=== PATIENT | female | born 1935 | race Caucasian/White ===

== ENCOUNTER 2017-08-13 08:15 | Inpatient (IN) | payer OTHER ==
[~2017-08-13] VITALS: Ht 162.6 cm; Wt 82.6 kg
--- NOTE | ~2017-08-13 | EKG ---
[address] [address] ELECTROCARDIOGRAM REPORT Name: DARCY GALEAS Room #: 420-P ADM IN M.R.#: [id number] Admission: 08/13/17 Attend Phys: Tyron Dunbar MD Discharge: Date of : 35 Report #: [id number] THIS REPORT FOR: //name// [facility] ED Test Date: 2017-08-13 Test Time: 08:39:06 Pat Name: DARCY GALEAS Department: Room: [facility] Gender: F [employer] Machine Operator: Gregory FANG : 1935 Requested By: Josh Montelongo Order Number: [id number] MD: Otilio Oliveira Measurements Intervals [place] Rate: 54 P: MA: QRS: -27 QRSD: 129 T: 21 QT: 548 QTc: 520 Interpretive Statements Junctional rhythm vs atrial fibrillation. Myocardial infarct finding no longer present Electronically Signed On 08-13-2017 13:00:44 CDT by Otilio Oliveira [email or web address] <ELECTRONICALLY SIGNED> By: Otilio Oliveira MD 08/13/17 1300 0839 8 Otilio Oliveira MD /JAME
--- NOTE | ~2017-08-13 | EKG ---
[address] [address] ELECTROCARDIOGRAM REPORT Name: DARCY GALEAS Room #: 420-P ADM IN M.R.#: [id number] Admission: 08/13/17 Attend Phys: Tyron Dunbar MD Discharge: Date of : 35 Report #: [id number] THIS REPORT FOR: //name// [facility] ED Test Date: 2017-08-13 Test Time: 08:33:00 Pat Name: DARCY GALEAS Department: Room: [facility] Gender: F Therapist Phys: Gregory FANG : 1935 Requested By: Josh Montelongo Order Number: [id number] MD: Otilio Oliveira Measurements Intervals [place] Rate: 55 P: [place]: QRS: -23 QRSD: 142 T: 26 QT: 547 QTc: 524 Interpretive Statements Junctional rhythm IVCD, consider atypical LBBB Compared to ECG 08/21/2016 07:19:09 Junctional rhythm now present Atrial fibrillation no longer present Myocardial infarct finding no longer present Electronically Signed On 08-13-2017 15:44:40 CDT by Otilio Oliveira [email or web address] <ELECTRONICALLY SIGNED> By: Otilio Oliveira MD 08/13/17 1544 0833 Otilio Oliveira MD /EPI
--- NOTE | ~2017-08-13 | 2DMMODE ---
[facility] [address] [place] [address] 2 D/M-MODE ECHOCARDIOGRAM Name: DARCY GALEAS Room #: 420-P ADM IN M.R.#: [id number] Admission: 08/13/17 Attend Phys: Tyron Dunbar, Discharge: Date of : 35 Date of Service: 08/13/17 1306 Report #: [id number] THIS REPORT FOR: //name// APPROVED REPORT Study performed: 08/13/2017 11:32:49 EXAM: Comprehensive 2D, Doppler, and color-flow Echocardiogram Patient Location: Echo lab Room #: 420 Status: routine BSA: 1.91 HR: 62 bpm BP: 112/51 mmHg Rhythm: NSR Other Information Study Quality: Good Indications Aortic stenosis. 2D Dimensions RVDd: 40.14 mm LVEF(%): 63.67 (>50%) IVSd: 13.12 (7-11mm) LVOT Diam: 20.36 (18-24mm) LVDd: 51.13 mm PWd: 12.87 (7-11mm) Ascending Ao: 28.98 (22-36mm) LVDs: 33.34 (25-40mm) Aortic Root: 29.46 mm Groves's LVEF: 63.67 % Volumes Left Atrial Volume (Systole) Single Plane 4CH: 98.34 mL Single Plane 2CH: 113.23 mL LA ESV Index: 64.00 mL/m2 Aortic Valve AoV Peak Carter.: 5.13 m/s AO Peak Gr.: 105.19 mmHg LVOT Max P.39 mmHg AO Mean Gr.: 64.90 mmHg AO V2 Mean: 3.85 m/s LVOT Max V: 0.77 m/s AO V2 VTI: 152.73 cm ZANA Vmax: 0.49 cm2 AI Vmax: 3.48 m/s AI [place]: 2.75 m/s2 [facility] [place] [address] 2 D/M-MODE ECHOCARDIOGRAM Name: DARCY GALEAS Room #: 420-P [facility] IN M.R.#: [id number] Admission: 08/13/17 Attend Phys: Tyron Dunbar, Discharge: Date of : 35 Date of Service: 08/13/17 1306 Report #: [id number] AI PHT: 367.89 ms Mitral Valve E/A Ratio: 2.3 MV Decel. Time: 128.78 ms MV E Max Carter.: 1.76 m/s MV A Carter.: 0.75 m/s MV PHT: 37.35 ms IVRT: 50.75 ms Pulmonary Valve PV Peak Carter.: 1.23 m/s PV Peak Gr.: 6.04 mmHg Tricuspid Valve TR Peak Carter.: 4.13 m/s RAP Estimate: 15.00 mmHg TR Peak Gr.: 68.36 mmHg PA Pressure: 73.00 mmHg Left Ventricle The left ventricle is normal size. There is normal LV segmental wall motion. Mild concentric left ventricular hypertrophy. Left ventricular systolic function is normal. LVEF is 55-60%. Severe diastolic dysfunction is present (restrictive filling). Right Ventricle The right ventricle is normal size. The right ventricular systolic function is low normal. Atria Left atrium is severely dilated. Right atrium is mildly dilated. Aortic Valve Aortic valve is severely calcified. Moderate aortic regurgitation. There is severe valvular aortic stenosis. Calculated aortic valve area is 0.5 cm2 with maximum pressure gradient of 105 mmHg and mean pressure gradient of 65 mmHg. Mitral Valve Moderate mitral annular calcification. Severe mitral regurgitation Tricuspid Valve The tricuspid valve is normal in structure. Moderate tricuspid regurgitation. Estimated PAP is 73mmHg. [facility] [address] [place] [address] 2 D/M-MODE ECHOCARDIOGRAM Name: DARCY GALEAS Room #: 420-P [facility] IN [facility]#: [id number] Admission: 08/13/17 Attend Phys: Tyron Dunbar, Discharge: Date of : 35 Date of Service: 08/13/17 1306 Report #: [id number] Pulmonic Valve The pulmonary valve is normal in structure. Mild pulmonic regurgitation. Great Vessels The aortic root is normal in size. The ascending aorta is normal in size. IVC is dilated and collapses <50% with inspiration. Pericardium There is no pericardial effusion. There is no pericardial effusion. Left and right pleural effusions noted. <Conclusion> Global LV function at the lower limits of normal LVEF is 55-60%. Mild concentric left ventricular hypertrophy. Both atria are dilated. Grade III diastolic dysfunction There is normal LV segmental wall motion. There is severe valvular aortic stenosis. Moderate insufficiency Calculated aortic valve area is 0.5 cm2 with maximum pressure gradient of 105 mmHg and mean pressure gradient of 65 mmHg. Moderate mitral annular calcification. Severe mitral regurgitation Pulmonary artery pressure of 73mmHg No pericardial effusion <ELECTRONICALLY SIGNED> By: Onofre Beverly MD, FACC 08/13/17 1306 05 130 Onofre Beverly MD, FACC /INF
[~2017-08-13 08:15] MED LIST: ASPIR 8181 MG PO; C-500500 MG; CENTRUM SILVER1 EAC4 PO; CIPRO250 M1 PO; CRESTOR10 MG; ELIQUIS5 MG PO; HUMALOG MI100 UNIT/6 SUBQ; IRON325 PO; K-DUR 20 MEQ T20 MEQ PO; LASIX 40 MG TAB40 M1 PO; LOPRESSOR50; LOSARTAN-HCTZ1 EAC3; METFORMIN HCL500 MG PO; NORVASC5 MG PO; PACERONE 200 M200 M1 PO; TOPROL XL100 MG PO; UNICOMPLEX M TA1 TA1 PO; VITAMINC500 PO
[2017-08-13 08:58] LABS: HEMATOCRIT 30.1 % (37.0-47.0); HEMOGLOBIN 9.8 gm/dL (12.0-15.0); MCH 30.6 pg (26.0-34.0); MCHC 32.7 g/dL (28.0-37.0); MCV 93.5 fL (80.0-100.0); RBC 3.22 mil/uL (4.20-5.00); RDW 15.8 % (10.5-14.5); WBC 7.8 thou/uL (4.0-11.0)
[2017-08-13 09:04] VITALS: BP 109/31
[2017-08-13 09:09] LABS: CALCIUM 9.1 mg/dL (8.5-10.1); CREATININE 2.6 mg/dL (0.6-1.0); POTASSIUM 3.9 mmol/L (3.5-5.1)
[2017-08-13 09:18] LABS: MAGNESIUM 2.2 mg/dL (1.8-2.4); TROPONIN-I 0.05 ng/mL (<0.04-0.07)
[2017-08-13] MEDS ORDERED: METOPROLOL SUCC50 MG PO (10:20)
[2017-08-13] MEDS ORDERED: HUMALOG MI100 UNIT/1 SUBQ (10:22)
[2017-08-13] MEDS ORDERED: PACERONE 200 M200 M1 PO (10:25)
[2017-08-13 10:45] VITALS: BP 112/51
[2017-08-13 11:47] VITALS: BP 144/84
[2017-08-13 16:19] VITALS: BP 108/51
[2017-08-13 20:00] VITALS: BP 110/47
[2017-08-14 04:00] VITALS: BP 116/41
[2017-08-14] MEDS ORDERED: ELIQUIS2.5 MG PO (07:55)
[2017-08-14 07:56] VITALS: BP 115/37
[2017-08-14 09:36] VITALS: BP 115/37
[2017-08-14] MEDS ORDERED: K-DUR 20 MEQ T20 MEQ PO (11:03)
[2017-08-14] MEDS ORDERED: LASIX 40 MG TAB40 M2 PO (11:04)
== END 2017-08-14 12:46 | disposition home or self-care (01) | DRG 291 ==
LOC: ER 08:15 → EROBS 10:24 → 4E 10:24
PROVIDERS: Emergency Medicine
DX: I13.0 Hypertensive heart and chronic kidney disease with heart failure and stage 1 through stage 4 chronic kidney disease, or unspecified chronic kidney disease (principal); I50.33 Acute on chronic diastolic (congestive) heart failure; N17.9 Acute kidney failure, unspecified; Z80.9 Family history of malignant neoplasm, unspecified; N18.9 Chronic kidney disease, unspecified; E11.22 Type 2 diabetes mellitus with diabetic chronic kidney disease; I35.0 Nonrheumatic aortic (valve) stenosis; I25.10 Atherosclerotic heart disease of native coronary artery without angina pectoris; E78.5 Hyperlipidemia, unspecified; I48.0 Paroxysmal atrial fibrillation; I27.20 Pulmonary hypertension, unspecified; Z79.01 Long term (current) use of anticoagulants; Z87.891 Personal history of nicotine dependence; Z82.49 Family history of ischemic heart disease and other diseases of the circulatory system; Z79.899 Other long term (current) drug therapy; Z88.6 Allergy status to analgesic agent; Z88.0 Allergy status to penicillin; Z88.8 Allergy status to other drugs, medicaments and biological substances; Z90.49 Acquired absence of other specified parts of digestive tract
CPT/HCPCS: 10183

== ENCOUNTER 2017-09-25 16:51 | Inpatient (IN) | payer OTHER ==
[~2017-09-25] VITALS: Ht 162.6 cm; Wt 79.7 kg
--- NOTE | ~2017-09-25 | HC ---
[facility] [place] [address] CONSULTATION Name: DARCY GALEAS Room #: 211-P ADM IN M.R.#: [id number] Admission: 09/25/17 Attend Phys: Cedric Mac MD, Discharge: Date of : 35 Report #: [id number] THIS REPORT FOR: //name// CC: Cedric Dunbar DATE OF SERVICE: 09/25/2017 REASON FOR CONSULTATION: Worsening renal function. HISTORY OF PRESENT ILLNESS: This is an 81-year-old female who has severe/critical aortic stenosis. She has had multiple hospitalizations over the past several years related to this. Her most recent one was about 5 or 6 weeks ago in early August. At that time, she collapsed when trying to help her who had had a TIA. She ended up in the hospital and underwent some diuresis. She has previously been known to have critical aortic stenosis. Her last echocardiogram from August showed an aortic valve area of only 0.5 cm and a gradient across that valve over 100 mmHg. She also has some diabetes mellitus. She has not previously shown proteinuria. Her creatinine at that time was in the 2 range. She has undergone additional diuresis and then was discharged to home, originally without diuretics. Then, she has been back on them and even on a double dose of 80 mg daily last weekend because of worsening dyspnea. Also, during the last hospitalization, she had been on metformin, but that was stopped. She was also seen in consultation during that hospitalization by one of my associates, Shelly Dyson. He reviewed the fact that she had an ultrasound of her kidneys, which was normal anatomically. Her changes were all consistent with cardiorenal syndrome. The patient saw Dr. Mac in the office today and with her worsening symptoms, she was admitted to the hospital. She has been borderline hypotensive with blood pressure of 100/45. She has been started on Lasix drip at 5 mg per hour. She denies any exposure to nonsteroidals. No nephrotoxic exposures. PAST MEDICAL HISTORY: Critical aortic stenosis as noted above, also has a history of atrial fibrillation, some coronary artery disease, diabetes for a number of years, hypertension more on the hypotensive side now, hyperlipidemia. She has had a previous hernia repair and a cholecystectomy. MEDICATIONS ON ADMISSION: Include amiodarone 200 mg daily, furosemide 40 mg daily, aspirin 81 mg daily, Eliquis, Crestor 10 mg daily, metoprolol 50 mg daily and some insulin. ALLERGIES: CEPHALOSPORINS, CODEINE, PENICILLIN, and SULFA. FAMILY HISTORY: Noncontributory. SOCIAL HISTORY: The patient is , had a recent TIA accompanied at [address] [address] CONSULTATION Name: DARCY GALEAS Room #: 211-P ADM IN M.R.#: [id number] Admission: 09/25/17 Attend Phys: Cedric Mac MD, Discharge: Date of : 35 Report #: [id number] this time by 8 or 10 family members multiple which are her adult children and their spouses. REVIEW OF SYSTEMS: Appetite is poor. She says she has lost 30 pounds in the past year, still has lower extremity edema, legs feel heavy. Denies chest pain. Does have dyspnea with any exertion, orthopnea. She has been sleeping more upright. Denies fevers, chills or sweats. Has had some sinus fullness and drainage and cough associated with that. Denies palpitations. Appetite has been now down. No dysuria. PHYSICAL EXAMINATION: GENERAL: Very pleasant 81-year-old female, awake, alert and responsive. VITAL SIGNS: Blood pressure 100/45, heart rate 58, temperature 97.9, oxygen saturation 94%. HEENT: Shows pupils are equal and reactive. Sclerae nonicteric. Oral mucosa is moist. NECK: Veins are not distended. Neck is supple, no adenopathy. CHEST: Shows mild decrease in the bases, but overall fairly clear lung redman. BACK: Shows no CVA tenderness. HEART: Shows a grade 3 very high pitched systolic murmur throughout the epicardium with radiation to the carotids. ABDOMEN: Has active bowel sounds, is soft, nontender at this time. Nondistended. No organomegaly or masses are palpable. EXTREMITIES: She has 2+ bilateral lower extremity edema of the legs, 1+ of the thighs. She has diminished pedal pulses. ASSESSMENT: 1. Critical aortic stenosis. Since I started this dictation, I have had a chance to discuss with Dr. Mac. He reviewed her echocardiogram from the office today. Everyone was aware that she needs some sort of valve manipulation either a TAVR or an open valve replacement. 2. Worsening heart failure symptoms. Well described previously. She is on Lasix drip and will see if we can get her symptomatically better. 3. Worsening renal failure. She has cardiorenal syndrome. Worsening renal failure related cardiorenal syndrome. Previous renal workup has been negative. We will repeat her urinalysis just to make sure that she has not developed nephrotic proteinuria. We will also check a fractional excretion of sodium as if this is all due to her critical aortic stenosis, it will probably be low even in spite of the Lasix. 4. Longstanding diabetes. PLAN: 1. Okay to continue her Lasix drip tonight. 2. Check urinalysis and fractional excretion of sodium. 3. Repeat labs in the morning. 4. I have discussed with Dr. Mac and our based on under the understanding [facility] [address] [place] [address] CONSULTATION Name: DARCY GALEAS Room #: 211-P ADM IN M.R.#: [id number] Admission: 09/25/17 Attend Phys: Cedric Mac MD, Discharge: Date of : 35 Report #: [id number] that her renal functional depend upon what happens with her heart, meant that I do not expect it to improve until her aortic valve is corrected by whatever means is the best for her. 5. I have also discussed this with the patient and her family and they expressed understanding. <ELECTRONICALLY SIGNED> By: Navin Bernardo MD 09/28/17 1452 2046 0945 Navin Bernardo MD /nt
[~2017-09-25 16:51] MED LIST changes: +ELIQUIS2.5 MG PO; +HUMALOG MI100 UNIT/1 SUBQ; +LASIX 40 MG TAB40 M2 PO; +METOPROLOL SUCC50 MG PO
[2017-09-25 17:29] VITALS: BP 105/43
[2017-09-25 18:00] LABS: HEMATOCRIT 30.5 % (37.0-47.0); MCH 30.4 pg (26.0-34.0); MCHC 32.8 g/dL (28.0-37.0); MCV 92.5 fL (80.0-100.0); RBC 3.3 mil/uL (4.20-5.00); RDW 17.1 % (10.5-14.5); WBC 9.6 thou/uL (4.0-11.0)
[2017-09-25 18:15] LABS: CALCIUM 9.2 mg/dL (8.5-10.1); CREATININE 3.4 mg/dL (0.6-1.0); POTASSIUM 3.6 mmol/L (3.5-5.1)
[2017-09-25 18:20] LABS: ALBUMIN 2.7 g/dL (3.4-5.0); MAGNESIUM 2.4 mg/dL (1.8-2.4); TOTAL BILIRUBIN 1.5 mg/dL (<0.1-1.0); TOTAL PROTEIN 7.1 g/dL (6.4-8.2)
[2017-09-25 19:42] VITALS: BP 100/45
[2017-09-25 22:09] VITALS: BP 105/38
[2017-09-25 23:59] VITALS: BP 95/45
[2017-09-26] VITALS (7 sets, daily range): BP systolic 94–102; BP diastolic 38–53
[2017-09-26 03:13] LABS: ALBUMIN 2.3 g/dL (3.4-5.0); CALCIUM 8.8 mg/dL (8.5-10.1); CREATININE 3.4 mg/dL (0.6-1.0); PHOSPHORUS 3.6 mg/dL (2.5-4.9)
[2017-09-26 03:22] LABS: POTASSIUM 2.1 mmol/L (3.5-5.1)
[2017-09-26 04:08] LABS: URINE BILIRUBIN NEGATIVE (Negative); URINE BLOOD 3+ (Negative); URINE COLOR YELLOW; URINE GLUCOSE-RANDOM* NEGATIVE (Negative); URINE KETONES NEGATIVE (Negative); URINE NITRITE NEGATIVE (Negative); URINE PROTEIN (DIPSTICK) 1+ (Negative); URINE SPECIFIC GRAVITY <= 1.005 (1.003-1.035); URINE UROBILINOGEN 0.2 E.U./dl (0.2-1.0)
[2017-09-26 05:02] LABS: CRYSTALS None Seen /LPF (None Seen); HYALINE CASTS 4-10 Moderate /LPF (None Seen); SQUAMOUS None Seen /LPF (0-3); URINE RBC 3-10 Few /HPF (0-2)
[2017-09-26 05:03] LABS: BACTERIA 1-9 Few /HPF (None Seen); URINE WBC 6-15 Few /HPF (0-5); WBC CLUMPS Rare (None Seen)
[2017-09-27 03:57] VITALS: BP 109/47
[2017-09-27 04:24] LABS: ALBUMIN 2.2 g/dL (3.4-5.0); CALCIUM 8.6 mg/dL (8.5-10.1); CREATININE 3.4 mg/dL (0.6-1.0); PHOSPHORUS 3.3 mg/dL (2.5-4.9)
[2017-09-27 07:15] VITALS: BP 101/65
[2017-09-27 12:05] VITALS: BP 92/45
[2017-09-27 15:30] VITALS: BP 112/45
[2017-09-27 19:49] VITALS: BP 111/88
[2017-09-28 04:06] VITALS: BP 96/45
[2017-09-28 04:52] LABS: ALBUMIN 2.2 g/dL (3.4-5.0); CALCIUM 8.7 mg/dL (8.5-10.1); CREATININE 3.5 mg/dL (0.6-1.0); PHOSPHORUS 3.9 mg/dL (2.5-4.9); POTASSIUM 3.9 mmol/L (3.5-5.1)
[2017-09-28 07:12] VITALS: BP 100/34
[2017-09-28 11:18] VITALS: BP 92/39
[2017-09-28 14:14] LABS: URINE BILIRUBIN NEGATIVE (Negative); URINE BLOOD 3+ (Negative); URINE COLOR YELLOW; URINE GLUCOSE-RANDOM* NEGATIVE (Negative); URINE KETONES NEGATIVE (Negative); URINE NITRITE NEGATIVE (Negative); URINE PROTEIN (DIPSTICK) 1+ (Negative); URINE SPECIFIC GRAVITY 1.015 (1.003-1.035)
[2017-09-28 14:30] LABS: SQUAMOUS 4-10 Moderate /LPF (0-3)
[2017-09-28 14:31] LABS: AMORPHOUS URATES Moderate /LPF (None Seen); CASTS None Seen /LPF (None Seen); URINE RBC 3-10 Few /HPF (0-2); URINE WBC 6-15 Few /HPF (0-5)
[2017-09-28 17:06] VITALS: BP 94/44
[2017-09-28 21:00] VITALS: BP 97/55
[2017-09-29 03:20] LABS: ALBUMIN 2.1 g/dL (3.4-5.0); CALCIUM 8.8 mg/dL (8.5-10.1); CREATININE 3.6 mg/dL (0.6-1.0); MAGNESIUM 2.1 mg/dL (1.8-2.4); PHOSPHORUS 4.5 mg/dL (2.5-4.9); POTASSIUM 3.3 mmol/L (3.5-5.1)
[2017-09-29 06:10] VITALS: BP 97/50
[2017-09-29 08:30] VITALS: BP 90/30
[2017-09-29 13:10] VITALS: BP 97/40
[2017-09-29 15:40] VITALS: BP 97/45
[2017-09-29 19:45] VITALS: BP 100/45
[2017-09-30 04:08] LABS: ALBUMIN 2.1 g/dL (3.4-5.0); CALCIUM 8.8 mg/dL (8.5-10.1); CREATININE 3.9 mg/dL (0.6-1.0); PHOSPHORUS 5.2 mg/dL (2.5-4.9); POTASSIUM 3.3 mmol/L (3.5-5.1)
[2017-09-30 04:20] LABS: HEMATOCRIT 28.8 % (37.0-47.0); HEMOGLOBIN 9.2 gm/dL (12.0-15.0); MCH 29.9 pg (26.0-34.0); MCHC 31.8 g/dL (28.0-37.0); MCV 93.8 fL (80.0-100.0); PLATELET COUNT 241 thou/uL (150-400); RBC 3.07 mil/uL (4.20-5.00); WBC 11.8 thou/uL (4.0-11.0)
[2017-09-30 04:37] LABS: MANUAL DIFF YES
[2017-09-30 04:53] VITALS: BP 95/38
[2017-09-30 05:35] LABS: ABSOLUTE NEUTROPHILS 10.5 thou/uL (1.4-8.2); TOTAL CELL COUNT 100
[2017-09-30 05:36] LABS: ANISOCYTOSIS 1+; LARGE PLATELETS OCCASIONAL; OVALOCYTES OCCASIONAL; POLYCHROMASIA OCCASIONAL
[2017-09-30 07:19] VITALS: BP 96/43
[2017-09-30 12:08] VITALS: BP 95/43
== END 2017-09-30 13:35 | disposition short-term general hospital (02) | DRG 291 ==
LOC: 2N 16:51
PROVIDERS: Hospitalist; Internal Medicine Endocrinology, Diabetes & Metabolism; Internal Medicine Nephrology; Nurse Practitioner Gerontology
DX: I13.0 Hypertensive heart and chronic kidney disease with heart failure and stage 1 through stage 4 chronic kidney disease, or unspecified chronic kidney disease (principal); I50.23 Acute on chronic systolic (congestive) heart failure; E43 Unspecified severe protein-calorie malnutrition; N39.0 Urinary tract infection, site not specified; N18.4 Chronic kidney disease, stage 4 (severe); I25.10 Atherosclerotic heart disease of native coronary artery without angina pectoris; E78.5 Hyperlipidemia, unspecified; I35.0 Nonrheumatic aortic (valve) stenosis; E11.22 Type 2 diabetes mellitus with diabetic chronic kidney disease; E78.00 Pure hypercholesterolemia, unspecified; E87.6 Hypokalemia; I48.0 Paroxysmal atrial fibrillation; E11.65 Type 2 diabetes mellitus with hyperglycemia; I50.9 Heart failure, unspecified; Z90.49 Acquired absence of other specified parts of digestive tract; Z88.6 Allergy status to analgesic agent; Z88.0 Allergy status to penicillin; Z88.2 Allergy status to sulfonamides; Z88.8 Allergy status to other drugs, medicaments and biological substances
CPT/HCPCS: 10081